=== PATIENT | male | born 1950 | race Caucasian/White ===

== ENCOUNTER 2023-12-07 08:05 | Emergency (ER) | payer OTHER ==
[2023-12-07 08:28] VITALS: BP 148/99; PULSE 90; RESP 18; TEMP 98.1; BMI 29.5
== END 2023-12-07 08:48 | disposition home or self-care (01) ==
LOC: FER 08:05
DX: L03.114 Cellulitis of left upper limb (principal); M79.89 Other specified soft tissue disorders; W54.8XXA Other contact with dog, initial encounter
CPT/HCPCS: 99283-25

== ENCOUNTER 2025-01-17 07:00 | Emergency (ER) | payer OTHER ==
[2025-01-17 07:09] VITALS: BP 175/75; PULSE 85; RESP 18; TEMP 97.7; BMI 27.8
== END 2025-01-17 08:29 | disposition home or self-care (01) ==
LOC: JER 07:00
DX: Z48.02 Encounter for removal of sutures (principal)
CPT/HCPCS: 99281-25